=== PATIENT | male | born 1985 | race Caucasian/White ===

== ENCOUNTER 2019-12-10 13:51 | Emergency (ER) | payer SELFPAY ==
[~2019-12-10] VITALS: Ht 177.8 cm; Wt 86.4 kg
[2019-12-10 13:56] VITALS: Ht 177.8 cm; Wt 86.4 kg
[2019-12-10] MEDS ORDERED: VALIUM 2 MG TAB2 MG (13:59)
[2019-12-10 14:43] LABS: CALC OSMOLALITY 286 mosm/kg (275-300); CALCIUM 8.8 mg/dL (8.5-10.1); CARBON DIOXIDE 20.6 mmol/L (21.0-32.0); CHLORIDE - SERUM 106 mmol/L (98-107); CREATININE - SERUM 1.1 mg/dL (0.6-1.3); GLUCOSE 81 mg/dL (74-106); POTASSIUM - SERUM 3.6 mmol/L (3.5-5.1); SODIUM 144 mmol/L (136-145); UREA NITROGEN 16 mg/dL (7-18); eGFR NON AFRICAN AMERICAN 82 mL/min (90-120)
[2019-12-10 14:59] LABS: ALBUMIN 4.5 g/dL (3.4-5.0); ALKALINE PHOSPHATASE 104 U/L (30-120); ALT (SGPT) 38 U/L (10-68); AMYLASE - SERUM 25 U/L (25-115); BILIRUBIN - TOTAL 0.83 mg/dL (0.2-1.3); CREATINE KINASE 762 UL (21-232); LIPASE 50 U/L (73-393); MAGNESIUM - SERUM 1.9 mg/dL (1.8-2.4); PROTEIN - SERUM 7.7 g/dL (6.4-8.2)
[2019-12-10 15:03] LABS: TROPONIN-I < 0.017 ng/mL (0.000-0.060)
[2019-12-10 15:13] LABS: HEMOGLOBIN 15.8 g/dL (13.5-17.5); LYMPHOCYTES 7.6 % (15-50); MCH 32.5 pg (26.0-34.0); MCHC 34.3 g/dL (31.0-37.0); MCV 94.7 fL (80.0-100.0); MEAN PLATELET VOLUME 9.3 fL (7.4-10.4); PLATELET COUNT 296 10x3/uL (130-400); RBC 4.86 10x6/uL (4.20-6.10); RDW 12.3 % (11.5-14.5); WBC 16.1 10x3/uL (4.8-10.8)
--- NOTE | 2019-12-10 16:15 | NUR ---
DR. MURDOCK NOTIFIED AND REVIEWED PTS BEHAVIOR AND ASSESSMENT RESULTS. PT IS A LOW RISK PER DR. MURDOCK. DR. MURDOCK STATED TO GIVE RESOURCES TO PT AT TIME OF DISCHARGE. NO FURTHER ORDERS AT THSI TIME. RESOURCES REVIEWED WITH PT AND HE VERBALIZED UNDERSTANDING.
[2019-12-10 17:02] VITALS: BP 115/70
== END 2019-12-10 16:28 | disposition home or self-care (01) ==
LOC: D.ER 13:51
PROVIDERS: Family Medicine
DX: T67.5XXA Heat exhaustion, unspecified, initial encounter (principal); M62.82 Rhabdomyolysis